=== PATIENT | female | born 1940 | race Caucasian/White ===

== ENCOUNTER 2022-04-11 11:55 | Emergency (ER) | payer MEDICARE ==
[~2022-04-11] VITALS: Ht 160 cm; Wt 65.1 kg
[~2022-04-11 11:55] MED LIST: ASCO100031 PO; ASPI-611 PO; ATOR20TA PO; CARV3.1289 PO; CLOP75TA33 PO; LEVO25TA7 PO; MULT-1085 PO; NITR0.4T51 SL; OMEG1CAP2 PO; VALS160T2 PO
[2022-04-11 11:59] VITALS: BP 167/83
[2022-04-11 12:51] LABS: BASOPHILS # (AUTO) 0.1 X10'3 (0-0.2); BASOPHILS % (AUTO) 0.7 % (0-1); EOSINOPHILS # (AUTO) 0.2 X10'3 (0-0.9); EOSINOPHILS % (AUTO) 2.1 % (0-6); HEMATOCRIT 42.7 % (35.0-45.0); HEMOGLOBIN 14.2 g/dl (12.0-16.0); LYMPHOCYTES # (AUTO) 3.3 X10'3 (1.1-4.8); LYMPHOCYTES % (AUTO) 29.7 % (21-51); MEAN CORPUSCULAR HEMOGLOBIN 29.5 PG (27.0-31.0); MEAN CORPUSCULAR HGB CONC 33.3 g/dL (33.0-36.5); MEAN CORPUSCULAR VOLUME 88.5 FL (78-98); MEAN PLATELET VOLUME 7.8 FL (7.4-10.4); MONOCYTES % (AUTO) 9.3 % (2-12); NEUTROPHILS # (AUTO) 6.4 X10'3 (1.8-7.7); NEUTROPHILS % (AUTO) 58.2 % (42-75); PLATELET COUNT 302 X10'3 (140-440); RED BLOOD COUNT 4.83 X10'6 (4.20-5.60); RED CELL DISTRIBUTION WIDTH 14.6 % (11.5-14.5); WHITE BLOOD COUNT 11.1 X10'3 (4.5-11.0)
[2022-04-11 13:20] LABS: ALANINE AMINOTRANSFERASE 27 U/L (12-78); ALBUMIN 3.6 G/DL (3.4-5.0); ALKALINE PHOSPHATASE 79 IU/L (46-116); ANION GAP 12 (8-16); ASPARTATE AMINO TRANSFERASE 16 U/L (10-37); BILIRUBIN,TOTAL 0.2 MG/DL (0.1-1.0); BLOOD UREA NITROGEN 23 MG/DL (7-18); BUN/CREATININE RATIO 21.1 (6.6-38.0); CHLORIDE 108 MMOL/L (99-107); CREATININE 1.09 MG/DL (0.40-0.90); GLUCOSE 101 MG/DL (70-104); SODIUM 143 MMOL/L (135-145); TOTAL CARBON DIOXIDE 22.6 MMOL/L (24-32); TOTAL PROTEIN 7.2 G/DL (6.4-8.2); eGFR 48 ML/MIN
== END 2022-04-11 16:21 | disposition left against medical advice (07) ==
LOC: ER 11:55
DX: R07.89 Other chest pain (principal); Z53.21 Procedure and treatment not carried out due to patient leaving prior to being seen by health care provider; R41.0 Disorientation, unspecified
CPT/HCPCS: 36415; 70450; 80053; 85025; 93005

== ENCOUNTER 2025-04-16 09:14 | Outpatient (CLI) | payer MEDICARE ==
[~2025-04-16 09:14] MED LIST changes: -ASCO100031 PO; +ASCO10004 PO
--- NOTE | 2025-04-16 12:16 | RADIOLOGY REPORT ---
Exam: CT CTA CAROTIDS/VERTEBRALS INDICATION: OCCLUSION AND STENOSIS OF UNSPECIFIED CAROTID ARTERY EXAM DATE: 04/16/2025 10:04 AM COMPARISON: CT HEAD on DOS: 04/11/22 TECHNIQUE: CTA neck with intravenous contrast. 3D image postprocessing was performed on a dedicated workstation and images were used for interpretation and reporting. RADIATION DOSE: Angio: CTDIvol: 15.9 mGy, DLP: 483.8 mGy*cm FINDINGS: CTA neck: Vascular calcifications of the aortic arch. 50% stenosis of the right internal carotid artery secondary to calcific and noncalcific plaque. Short-segment 75 % stenosis of the proximal left internal carotid artery. Moderate grade diffuse stenosis of the intracranial portions of the left vertebral artery. Right vertebral artery is unremarkable. Multilevel degenerative changes of the spine. IMPRESSION: 50% stenosis of the right internal carotid artery secondary to calcific and noncalcific plaque. Short-segment 75 % stenosis of the proximal left internal carotid artery. Moderate grade diffuse stenosis of the intracranial portions of the left vertebral artery.
== END 2025-04-16 23:59 | disposition home or self-care (01) ==
LOC: RAD 09:14
PROVIDERS: ATTEND Internal Medicine Interventional Cardiology
DX: I65.23 Occlusion and stenosis of bilateral carotid arteries (principal); I65.02 Occlusion and stenosis of left vertebral artery; I70.0 Atherosclerosis of aorta; M47.819 Spondylosis without myelopathy or radiculopathy, site unspecified
CPT/HCPCS: 70498; Q9967

== ENCOUNTER 2025-06-18 08:43 | Outpatient (CLI) | payer MEDICARE ==
[2025-06-17 09:31] LABS: CREATININE 0.91 MG/DL (0.40-0.90); TOTAL CARBON DIOXIDE 26.2 MMOL/L (24-32); eGFR 59 ML/MIN
[~2025-06-18 08:43] MED LIST changes: +iohexol 350 MG/ML 50ML vial IV ONE
--- NOTE | 2025-06-18 14:18 | RADIOLOGY REPORT ---
Examination: CT CTA ABDOMEN LOWER EXTR RUNOFF CLINICAL HISTORY: PERIPHERAL VASCULAR DISEASE Comparison: None Technique: Using helical technique, CT data from the lung bases through the toes was obtained during rapid IV contrast infusion. The examination was timed to the arterial system to generate a CT angiographic study. 3D images were generated at an independent work station. Dose reduction techniques included automated exposure control. Radiation Dose Information: CT Dose: CTDI volume is 4.4 mGy. Dose-length product is 1210 mGy*cm Findings: Vascular: Abdominal aorta: Patent. Diffuse vascular atherosclerotic calcifications. Ectasia of the infrarenal abdominal aorta measures 2.8 cm. Celiac artery: Patent SMA: Patent. Moderate to high-grade stenosis proximally secondary to atherosclerotic disease. Renal arteries: Patent. Moderate atherosclerotic plaque of the proximal right renal artery. [place]: Patent Right lower extremity: Common iliac artery: Stent is patent. External iliac artery: Patent Internal iliac artery: Patent with high-grade atherosclerotic disease. Common femoral artery: Patent Profunda femoral artery: Patent Superficial femoral artery: Patent. Moderate grade short-segment stenosis of the mid right superficial femoral artery. Diffuse mild to moderate grade tandem stenoses of the distal superficial femoral artery. Distal superficial femoral artery stent is patent. Popliteal artery: Patent Anterior tibial artery: Patent Peroneal tibial trunk: Patent Peroneal artery: Patent Posterior tibial artery: Faint flow proximally. Occluded distally. Dorsalis pedis artery: Patent Left lower extremity: Common iliac artery: Stent is patent. External iliac artery: Patent Internal iliac artery: Patent with high-grade atherosclerotic disease. Common femoral artery: Patent Profunda femoral artery: Patent Superficial femoral artery: Patent. Short-segment high-grade stenosis of the mid superficial femoral artery. Diffuse moderate grade tandem stenoses of the proximal superficial femoral artery. Popliteal artery: Patent with moderate grade stenosis. Anterior tibial artery: Patent Peroneal tibial trunk: Patent Peroneal artery: Patent Posterior tibial artery: Occluded. Dorsalis pedis artery: Patent Portal/mesenteric veins: normal Abdominal systemic veins: normal Abdomen/Pelvis: Liver: The liver is normal in size and morphology,. No focal hepatic lesion. The portal veins are patent. Biliary System: Gallbladder: Normal Bile Ducts: No intrahepatic or extrahepatic biliary ductal dilation. Spleen: No splenomegaly or focal splenic lesion. Pancreas: No masses or ductal dilation. Adrenals: Right adrenal gland is unremarkable. Left adrenal nodule measures 1.8 cm. Urinary System: Kidneys and Ureters: Bilateral renal cysts. Normal in size and location. No renal masses. No renal or ureteral calculi. No hydronephrosis or hydroureter. Bladder: Normal. GI System: Moderate hiatal hernia. Lymph nodes: No lymphadenopathy. Peritoneal cavity and surface: No free fluid. No pneumoperitoneum. Soft Tissues: Normal. Reproductive Organs: Normal. Bones: No acute fracture or aggressive osseous lesion. Impression: Diffuse vascular atherosclerotic disease. Focal ectasia of the infrarenal abdominal aorta measuring 2.8 cm. Patent bilateral common iliac artery stents. Patent left distal superficial femoral artery stent. 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 2-vessel arterial flow into bilateral feet. Right posterior tibial artery is patent proximally. Left posterior tibial artery appears occluded. Diffuse atherosclerotic disease of bilateral superficial femoral arteries. Indeterminate left adrenal nodule measures 1.8 cm. This can be further evaluated with nonemergent CT or MRI adrenal mass protocol.
[2025-06-25] MEDS ORDERED: CHOL100046 PO (10:54)
[2025-06-25] MEDS ORDERED: EMPA10TA PO (10:54)
[2025-06-25] MEDS ORDERED: LOSA50TA64 PO (10:54)
[2025-06-25] MEDS ORDERED: RIVA10TA PO (10:54)
[2025-06-25] MEDS ORDERED: PANT40TA54 PO (10:54)
== END 2025-06-18 23:59 | disposition home or self-care (01) ==
LOC: RAD 08:43
PROVIDERS: ATTEND Surgery
DX: Z01.818 Encounter for other preprocedural examination (principal); I25.10 Atherosclerotic heart disease of native coronary artery without angina pectoris; I70.213 Atherosclerosis of native arteries of extremities with intermittent claudication, bilateral legs; I77.811 Abdominal aortic ectasia; M48.02 Spinal stenosis, cervical region; K44.9 Diaphragmatic hernia without obstruction or gangrene; I65.01 Occlusion and stenosis of right vertebral artery
CPT/HCPCS: 36415; 75635; 80048; Q9967

== ENCOUNTER 2025-07-17 08:26 | Outpatient (CLI) | payer MEDICARE ==
[~2025-07-17 08:26] MED LIST changes: -ATOR20TA PO; -CARV3.1289 PO; +CHOL100046 PO; -CLOP75TA33 PO; +EMPA10TA PO; -LEVO25TA7 PO; +LOSA50TA64 PO; -NITR0.4T51 SL; +PANT40TA54 PO; +RIVA10TA PO; -VALS160T2 PO; -iohexol 350 MG/ML 50ML vial IV ONE
--- NOTE | 2025-07-17 10:38 | VASCULAR REPORT ---
BILATERAL Lower Extremity Arterial Duplex Date: 07/17/2025 08:40 AM Clinical History: edema Comparison: CT CTA LOWER EXTREMITY on DOS: 06/28/25, VASC VL VENOUS on DOS: 06/26/25, CT CTA ABDOMEN LOWER EXTR RUNOFF on DOS: 06/18/25 The above named patient was referred for a NON-INVASIVE LOWER EXTREMITY ARTERIAL EVALUATION. The evaluation includes grayscale imaging, color flow Doppler and spectral analysis of the lower extermity arteries. Patient OUT-PATIENT InaRSation's Follow-up Right Fem-Pop bypass graft. Surgery/Intervention Bypass Graft 1 : Date : 06/26/2025 Site : right VELOCITY AND DOPPLER WAVEFORM ANALYSIS RIGHT cm/se Waveform Severity LEFT cm/se Waveform Severity c c dCFA 207.2 Multiphasic dCFA Prof Fem 68.5 Multiphasic Prof Fem Art. Art. Fem Art 69.4 Multiphasic Fem Art Prox. Prox. Fem Art 70.5 Multiphasic Fem Art Mid Mid. Fem Art 30.0 Multiphasic Fem Art Dist Dist. Pop Art(AK) 105.0 Multiphasic Moderate 50-79% Pop Art(AK) Pop Art(BK) 0.0 Occluded Pop Art(BK) EARLY CHILDHOOD TEACHER Dist. 30.4 Multiphasic EARLY CHILDHOOD TEACHER Dist. Per Art Dist. 27.5 Multiphasic Per Art Dist. ERICKA Dist. 112.4 Multiphasic ERICKA Dist. DPA 119.8 Multiphasic DPA DATE OF STUDY : 07/17/2025 2 of 2 BYPASS GRAFT ANALYSIS RIGHT cm/se Waveform Severity LEFT cm/se Waveform Severity c Prox. 229.0 Multiphasic Prox. Anastomosis Anastomosis Proximal 150 Multiphasic Moderate 50-79% Proximal 347. 239 Mid 75.0 Multiphasic Mid Distal 85.0 Multiphasic Distal Distal 70.0 Monophasic Distal Anastomosis Anastomosis CONCLUSION Multiphasic waveforms through Right Proximal Pop, No flow detected distal Right Pop. Remainder of makah vessels appear monophasic. Elevated velocity Right SENIOR INVESTMENT ANALYST, Right Proximal Pop. Right fem pop bypass has an elevated velicty in the proximal anastamosis and a stenotic velocity in the proximal segment. Waveforms are multiphasic exept for the distal anastamosis which is monophasic. Signed by
--- NOTE | 2025-07-17 10:39 | VASCULAR REPORT ---
The above named patient was referred for a PHYSIOLOGIC ARTERIAL DOPPLER EVALUATION. The evaluation includes blood pressures, ankle brachial indices (MAXIMILIAN), and segmental Doppler waveform analysis at rest and post exercise when applicable. Toe brachial indices (TBI) taken when necessary. Patient OUT-PATIENT Enaation: Ankle to Brachial Index IndYeations Followup Right Fem-Pop bypass graft Pressures/Indices Right MAXIMILIAN Left AB Brachial 140mmHg Brachial 122mmHg Ankle(PT) 20mmHg 0.1 Ankle(PT) too faint to too faint obtainmmHg Ankle(DP) 140mmHg 1.0 Ankle(DP) 130mmHg 0.93 CONCLUSION 2. Bilateral EVENT SET UP SPECIALIST, Right DPA appear monophasic, Left DPA appears multiphasic. 3. Right MAXIMILIAN at rest based on EVENT SET UP SPECIALIST 0.14 indicating severe disease, Right MAXIMILIAN at rest based on DPA 1.0 indicating normal. 4. Left MAXIMILIAN at rest unable to obtain based on EVENT SET UP SPECIALIST due to being too faint. Left MAXIMILIAN at rest based on DPA 0.93 indicating mild disease.
== END 2025-07-17 23:59 | disposition home or self-care (01) ==
LOC: VAS 08:26
PROVIDERS: ATTEND Surgery
DX: I73.9 Peripheral vascular disease, unspecified (principal)
CPT/HCPCS: 93922; 93925